=== PATIENT | male | born 1960 | race Caucasian/White ===

== ENCOUNTER 2021-03-27 11:28 | Emergency (ER) | payer MEDICARE ==
[2021-03-27] MEDS ORDERED: Boostrix 0.5 ML (Tdap) VIAL ONE (13:15)
== END 2021-03-27 13:28 | disposition home or self-care (01) ==
LOC: MADERS 11:28
DX: S81.812A Laceration without foreign body, left lower leg, initial encounter (principal); Z23 Encounter for immunization; M41.9 Scoliosis, unspecified; M48.00 Spinal stenosis, site unspecified; E03.9 Hypothyroidism, unspecified; Z79.899 Other long term (current) drug therapy; W45.8XXA Other foreign body or object entering through skin, initial encounter
CPT/HCPCS: 12001; 90715

== ENCOUNTER 2021-04-09 15:42 | Emergency (ER) | payer MEDICARE | END 2021-04-09 16:39 | disposition home or self-care (01) | LOC: MADERS 15:42 | DX: S91.012D Laceration without foreign body, left ankle, subsequent encounter (principal); E03.9 Hypothyroidism, unspecified; M48.00 Spinal stenosis, site unspecified; M41.9 Scoliosis, unspecified; Z79.899 Other long term (current) drug therapy; Z85.528 Personal history of other malignant neoplasm of kidney; W45.8XXD Other foreign body or object entering through skin, subsequent encounter | CPT/HCPCS: 99282 ==